=== PATIENT | male | born 1980 | race Caucasian/White ===

== ENCOUNTER 2020-09-01 16:57 | Emergency (ER) | payer BC ==
[~2020-09-01] VITALS: Ht 185.4 cm; Wt 104.5 kg
[2020-09-01 16:58] VITALS: TEMP 98.3
[2020-09-01 17:32] LABS: COLLECTION METHOD CLEAN CATCH
[2020-09-01 17:43] LABS: BASO # 0.1 (0.0-0.2); BASO % 0.7 % (0.0-2.0); EOS # 0.2 (0.0-0.7); EOS % 1.2 % (0-4.0); GRAN # 8.6 (1.4-6.5); GRAN % 59.3 % (42.2-75.2); HEMATOCRIT 40.5 % (42.0-52.0); HEMOGLOBIN 13.8 g/dl (13.5-18.0); LYMPH # 4.4 (1.2-3.4); LYMPH % 30.3 % (20.0-51.0); MEAN CELL VOLUME 89 fl (80.0-100.0); MEAN CORPUSCULAR HEMOGLOBIN 30 pg (27.0-31.0); MEAN CORPUSCULAR HGB CONC 34 g/dl (33.0-37.0); MEAN PLATELET VOLUME 9.1 fl (7.4-10.4); MONO # 1.2 (0.1-0.6); MONO % 8.2 % (1.7-9.3); PLATELET COUNT 416 K/mm3 (130-400); RED BLOOD COUNT 4.56 M/mm3 (4.20-5.60); REDCELL DISTRIBUTION WIDTH-CV 13.1 % (11.5-14.5)
[2020-09-01 17:49] LABS: CALCIUM 8.8 mg/dL (8.4-10.2); CREATININE, serum 0.95 (0.66-1.25); MUCOUS Present /lpf; SQUAMOUS EPITHELIAL None Seen /hpf; URINE BACTERIA None Seen /hpf; URINE RBC None Seen /hpf
[2020-09-01 18:25] LABS: PH 5 (5-8); URINE APPEARANCE Clear; URINE BILIRUBIN Negative (NEGATIVE); URINE BLOOD Negative (NEGATIVE); URINE COLOR Yellow; URINE GLUCOSE Negative (NEGATIVE); URINE KETONE Negative (NEGATIVE); URINE LEUKOCYTE ESTERASE Negative (NEGATIVE); URINE NITRATE Negative (NEGATIVE); URINE PROTEIN(semi-quant) Negative (NEGATIVE); URINE UROBILINOGEN Negative (NEGATIVE)
[2020-09-01] MEDS ORDERED: NORCO 325 MG-51 TAB PO ×3 (19:40→20:58)
[2020-09-01 20:45] VITALS: BP 141/98; PULSE 60
== END 2020-09-01 20:50 | disposition home or self-care (01) ==
LOC: COL.ER 16:57
PROVIDERS: Emergency Medicine
DX: S39.011A Strain of muscle, fascia and tendon of abdomen, initial encounter (principal); X50.1XXA Overexertion from prolonged static or awkward postures, initial encounter; Y99.0 Civilian activity done for income or pay
CPT/HCPCS: J1170; J1885; J7030; Q9967